=== PATIENT | male | born 1955 | race Caucasian/White ===

== ENCOUNTER 2024-11-29 09:43 | Day surgery (SDC) | payer MEDICARE, OTHER ==
[~2024-11-29] VITALS: Ht 182.9 cm; Wt 113.6 kg
[~2024-11-29 09:43] MED LIST: IBLOOD GLUCOSE TEST STRIP 1 EA TEST VI PRN; LACTATED RINGER'S 1,000 ML IV SCH; LIDOCAINE HCL 1% 5 ML SDV INJ ONE; MIDAZOLAM HCL 5 MG/5 ML VIAL IV PRN; fentaNYL citrate 100 MCG/2 ML VIAL IV PRN
[2024-11-29 10:08] VITALS: BP 163/79
[2024-11-29] MEDS ORDERED: MIDAZOLAM HCL 5 MG/5 ML VIAL ONE (10:24)
[2024-11-29] MEDS ORDERED: fentaNYL citrate 100 MCG/2 ML VIAL ONE (10:25)
--- NOTE | 2024-11-29 11:33 | NUR ---
11/29/24 1133 Alycia Serrano 1130-PATIENT ARRIVED TO PACU ON 1L NC RR EVEN. PATIENT AWAKE LAYING LEFT LATERAL PLACED ONR A 93% RR EVEN. ORIENTED TO PACU DENIES PAIN OR NAUSEA. ABDOMEN SOFT. IVF INFUSING. ENCOURAGED TO PASS GAS.
[2024-11-29 12:10] VITALS: BP 147/84
--- NOTE | 2024-12-04 11:00 | OR ---
[facility] [address] [place], [place] [address] Signed DATE OF OPERATION: 11/29/2024 SURGEON: Akira Gomez MD PREOPERATIVE DIAGNOSES: 1. Colon screening. 2. History of hepatitis C (treated and cured). POSTOPERATIVE DIAGNOSES: 1. Sigmoid diverticulosis. 2. Multiple polyps (11). PROCEDURE: Total colonoscopy to cecum with cold snare polypectomy x7 and cold morcellation polypectomy x4. ANESTHESIA: Intravenous sedation; fentanyl 100 mcg and Versed 7 mg. INDICATION: This 69-year-old white man is a patient of BURTON Anderson. He is referred for screening colonoscopy having never undergone colon evaluation in the past. He does have a history of hepatitis C which was treated medically and is said to be cured. He has no current symptoms of bleeding, diarrhea, or constipation and no family history of colon cancer. He understands the risk of colonoscopy including but not limited to bleeding, infection, and perforation and wished to proceed. FINDINGS: The prep was good. Complete colonoscopy was undertaken to the cecum. Mucosal elevation behind the ileocecal valve was required as the complete and full intubation of the cecum was not forthcoming. There were a number of polyps within the colon including the proximal ascending colon, , the transverse colon, the sigmoid x2, the rectosigmoid x2 and additional rectosigmoid x3 as well as a rectal polyp and three additional rectal polyps. In total, 11 were excised. DESCRIPTION OF PROCEDURE: The patient was brought to the endoscopy suite and placed in the lateral decubitus position, given intravenous sedation to the point of slurred speech and nystagmus. Digital rectal examination was normal. Electronically Signed By: AKIRA GOMEZ MD 12/04/[address] [facility] PATIENT NAME: NISSA DOLAN OPERATIVE REPORT DATE OF : 57 REPORT #: [id number] PHYSICIAN: AKIRA GOMEZ MD PCP: AMRIK JOHNSON REPORT IS CONFIDENTIAL AND NOT TO BE RELEASED WITHOUT AUTHORIZATION [facility] [address] [place], [place] [address] Signed An Olympus video colonoscope was passed in the rectum and manipulated throughout the colon noting diverticulosis of the sigmoid and left colon. The scope was ultimately passed to the right colon and nearly into the cecum. Various maneuvers could not fully intubate the cecum, but with elevation of the mucosa using a biopsy forcep device, the mucosa of the cecum was fully found to be normal. Irrigation was undertaken. The scope was withdrawn, immediately noted was a proximal ascending colonic polyp which was excised with cold snare technique. The scope was withdrawn and a transverse colonic polyp was similarly identified and similarly excised. Further withdrawal showed no abnormality into the sigmoid. There were two polyps there, both excised with cold snare technique. Both were pedunculated. One was additionally secured with a hemoclip. Further withdrawal showed two rectosigmoid polyps, both excised with snare technique. Further withdrawal showed another rectosigmoid polyp excised with cold morcellation technique. Further withdrawal showed three additional small rectal polyps, all excised with cold morcellation technique. Retroflexed view was otherwise normal. Scope was removed and the patient was taken to the recovery room in good condition. CONCLUDING DIAGNOSES: Polyps x11 and diverticulosis. PLAN: We will recommend repeat colonoscopy in 2 to 3 years given the number of polyps. Colonoscopy certainly can and should be done sooner if there are adverse symptoms. He should maintain a high-fiber diet based on his diverticulosis. He will return to the ongoing care of BURTON Anderson. MD BREEZY Bridges/LLUVIAL /[id number] Copies: ~ Electronically Signed By: AKIRA GOMEZ MD 12/04/24 1100 PATIENT NAME: NISSA DOLAN OPERATIVE REPORT DATE OF : 57 REPORT #: [id number] PHYSICIAN: AKIRA GOMEZ MD PCP: AMRIK JOHNSON REPORT IS CONFIDENTIAL AND NOT TO BE RELEASED WITHOUT AUTHORIZATION
--- NOTE | 2024-12-04 16:43 | PATH ---
[facility] [address] [address] Signed SPECIMEN(S): A TRANSVERSE/DESCENDING COLON POLYP SPECIMEN(S): B ASCENDING COLON POLYP SPECIMEN(S): C SIGMOID POLYP SPECIMEN(S): D SIGMOID POLYP SPECIMEN(S): E RECTOSIGMOID POLYP SPECIMEN(S): F RECTOSIGMOID POLYP SPECIMEN(S): G RECTOSIGMOID POLYP SPECIMEN(S): H RECTAL POLYP SPECIMEN(S): I RECTAL POLYP SPECIMEN SOURCE: A. TRANSVERSE/DESCENDING COLON POLYP B. ASCENDING COLON POLYP C. SIGMOID POLYP D. SIGMOID POLYP E. RECTOSIGMOID POLYP F. RECTOSIGMOID POLYP G. RECTOSIGMOID POLYP H. RECTAL POLYP I. RECTAL POLYP CLINICAL HISTORY: Colon cancer screening, diverticulosis, multiple polyps FINAL PATHOLOGIC DIAGNOSIS: A. Transverse/descending colon polyp: - Tubular adenoma (two fragments). B. Ascending colon polyp: - Tubular adenoma (five fragments). C. Sigmoid polyp: - Hyperplastic polyp (one fragment). D. Sigmoid polyp: - Hyperplastic polyp (one fragment). E. Rectosigmoid polyp: - Hyperplastic polyp (one fragment). F. Rectosigmoid polyp: - Hyperplastic polyp (one fragment). G. Rectosigmoid polyp: - Hyperplastic polyp (one fragment). H. Rectal polyp: - Hyperplastic polyp (two fragments). PATIENT NAME: NISSA DOLAN PATHOLOGY DATE OF : 57 REPORT #: [id number] PHYSICIAN: [facility] PCP: AMRIK JOHNSON REPORT IS CONFIDENTIAL AND NOT TO BE RELEASED WITHOUT AUTHORIZATION [facility] [address] [place], [place] [address] Signed I. Rectal polyp: - Hyperplastic polyp (three fragments). JVR MICROSCOPIC EXAMINATION: Histologic sections of all submitted blocks are examined by light microscopy. These findings, together with the gross examination, support the pathologic diagnosis. GROSS DESCRIPTION: A. The specimen, labeled and designated "McNeeley, transverse/descending colon polyp," is received in formalin and consists of five sosa soft tissue fragments, ranging from 0.1-0.6 cm. Entirely submitted in (A1). B. The specimen, labeled and designated "McNeeley, ascending colon polyp," is received in formalin and consists of five sosa soft tissue fragments, ranging from 0.1-0.3 cm. Entirely submitted in (B1). C. The specimen, labeled and designated "McNeeley, sigmoid polyp," is received in formalin and consists of one sosa soft tissue fragment, 0.5 cm. Entirely submitted in (C1). D. The specimen, labeled and designated "McNeeley, sigmoid polyp," is received in formalin and consists of a sosa polypoid piece of tissue (0.6 x 0.5 x 0.5 cm). The possible resection margin is inked blue, and the tissue is bisected to reveal sosa to red-brown soft cut surfaces. The specimen is submitted entirely in cassette (D1). E. The specimen, labeled and designated "McNeeley, rectosigmoid polyp," is received in formalin and consists of one sosa soft tissue fragment, 0.5 cm. Entirely submitted in (E1). F. The specimen, labeled and designated "McNeeley, rectosigmoid polyp," is received in formalin and consists of a ssoa polypoid piece of tissue (0.6 x 0.5 x 0.5 cm). The resection margin is inked blue, and the tissue is bisected to reveal pink-sosa soft cut surfaces. The specimen is submitted entirely in cassette (F1). G. The specimen, labeled and designated "McNeeley, rectosigmoid polyp," is received in formalin and consists of one sosa soft tissue fragment, 0.3 cm. Entirely submitted in (G1). H. The specimen, labeled and designated "McNeeley, rectal polyp," is received in formalin and consists of two sosa soft tissue fragments, ranging from 0.2-0.3 cm. Entirely submitted in (H1). I. The specimen, labeled and designated "McNeeley, rectal polyp," is received PATIENT NAME: NISSA DOLAN PATHOLOGY DATE OF : 57 REPORT #: [id number] PHYSICIAN: MARKUS TALLEY PCP: AMRIK JOHNSON REPORT IS CONFIDENTIAL AND NOT TO BE RELEASED WITHOUT AUTHORIZATION [address] [address] Signed in formalin and consists of three sosa soft tissue fragments, ranging from 0.2-0.3 cm. Entirely submitted in (I1). VB (under the direct supervision of a pathologist) The Gross Description was prepared using a voice recognition system. The report was reviewed for accuracy; however, sound-alike word errors, addition and/or deletions may occur. If there is any question about this report, please contact Client Services. ADDITIONAL NOTES: Immunohistochemical and/or in situ hybridization studies if performed in this case included appropriate positive controls that reacted as expected. This test was developed and its performance characteristics determined by [facility]. It has not been cleared or approved by the U.S. Food and Drug Administration. The FDA has determined that such clearance or approval is not necessary. This test is used for clinical purposes. It should not be regarded as investigational or for research. [facility] is certified under the Clinical Laboratory Improvement Amendments of 1988 (CLIA) as qualified to perform high complexity clinical laboratory testing. PERFORMING LABORATORY: Technical component was performed by [facility], [address] [place] [id number] (CLIA# [id number]). Professional interpretation was performed by [facility] [place] [facility] [place] [id number] (CLIA#: [id number]). Diagnostician: Shivam Elliott MD Pathologist Electronically Signed 12/04/2024 Copies: ~ PATIENT NAME: NISSA DOLAN PATHOLOGY DATE OF : 57 REPORT #: [id number] PHYSICIAN: [facility] PCP: AMRIK JOHNSON REPORT IS CONFIDENTIAL AND NOT TO BE RELEASED WITHOUT AUTHORIZATION
== END 2024-11-29 12:15 | disposition home or self-care (01) ==
LOC: DS 09:43
PROVIDERS: ATTEND Surgery
PROC: 0DBL8ZZ Excision of Transverse Colon, Via Natural or Artificial Opening Endoscopic (ICD-10-PCS; 2024-11-29)
PROC: 0DBN8ZZ Excision of Sigmoid Colon, Via Natural or Artificial Opening Endoscopic (ICD-10-PCS; 2024-11-29)
PROC: 0DBP8ZZ Excision of Rectum, Via Natural or Artificial Opening Endoscopic (ICD-10-PCS; 2024-11-29)
PROC: 0DBF8ZZ Excision of Right Large Intestine, Via Natural or Artificial Opening Endoscopic (ICD-10-PCS; principal; 2024-11-29 11:00)
DX: Z12.11 Encounter for screening for malignant neoplasm of colon (principal); D12.2 Benign neoplasm of ascending colon; D12.3 Benign neoplasm of transverse colon; K63.5 Polyp of colon; K62.1 Rectal polyp; K57.30 Diverticulosis of large intestine without perforation or abscess without bleeding; E66.01 Morbid (severe) obesity due to excess calories; Z68.33 Body mass index [BMI] 33.0-33.9, adult
CPT/HCPCS: 99153; G0500; J2250; J3010

== ENCOUNTER 2024-12-11 05:47 | Day surgery (SDC) | payer MEDICARE, OTHER ==
[2024-12-05 08:54] VITALS: BP 170/86
[~2024-12-11] VITALS: Ht 182.9 cm; Wt 113.6 kg
[~2024-12-11 05:47] MED LIST changes: -IBLOOD GLUCOSE TEST STRIP 1 EA TEST VI PRN; -LIDOCAINE HCL 1% 5 ML SDV INJ ONE; -MIDAZOLAM HCL 5 MG/5 ML VIAL IV PRN; -fentaNYL citrate 100 MCG/2 ML VIAL IV PRN
[2024-12-11 06:04] VITALS: BP 152/81
[2024-12-11] MEDS ORDERED: IBLOOD GLUCOSE TEST STRIP 1 EA TEST VI PRN (07:00)
[2024-12-11] MEDS ORDERED: HEParin SOD (PORCINE) 5,000 UNIT/ML SDV SUB-Q SCH (07:00)
[2024-12-11] MEDS ORDERED: CEFAZOLIN SODIUM 2 GM/20 ML SYR IV SCH (07:00)
[2024-12-11] MEDS ORDERED: LIDOCAINE HCL 1% 5 ML SDV INJ ONE (07:00)
[2024-12-11] MEDS ORDERED: DEXAMETHASONE SOD PHOS 4 MG/ML VIAL ONE (07:06)
[2024-12-11] MEDS ORDERED: GLYCOPYRROLATE 1 MG/5 ML MDV ONE (07:06)
[2024-12-11] MEDS ORDERED: fentaNYL citrate 100 MCG/2 ML VIAL ONE ×2 (07:06→08:05)
[2024-12-11] MEDS ORDERED: LIDOCAINE HCL 2% 5 ML SDV ONE (07:06)
[2024-12-11] MEDS ORDERED: propofoL 200 MG/20 ML VIAL ONE (07:06)
--- NOTE | 2024-12-11 07:32 | NUR ---
VISITED DURING SPIRITUAL CARE ROUNDS. PT SUPPORTED BY SPOUSE IN ROOM. BOTH IN OVERALL GOOD SPIRITS. NO IMMEDIATE NEEDS. DIRECTOR OF EDUCATION AND TRAINING PROVIDED SUPPORTIVE PRESENCE, EXPLORED MARITZA PRACTICES, PROVIDED HOSPITALITY, PRAYER. PT AND SPOUSE EXPRESSED GRATITUDE, MARITZA SOURCE OF STRENGTH.
[2024-12-11] MEDS ORDERED: ePHEDrine sulfate 50 MG/ML AMP ONE (08:11)
--- NOTE | 2024-12-11 08:35 | NUR ---
12/11/24 0835 Alycia Serrano 0828-PATIENT ARRIVED TO PACU ON 6L MASK RR EVEN DROWSY AWAKE. ORIENTED TO PACU DENIES PAIN OR NAUSEA DRESSING INTACT TO RIGHT SHOULDER. SR HR 80'S IVF INFUSING. 0833-PATIENT AWAKE HOB ELEVATED PLACED ON RA 95% RR EVEN. DENIES PAIN OR NAUSEA.
[2024-12-11] MEDS ORDERED: MOTRIN IB200 MG PO (08:39)
[2024-12-11] MEDS ORDERED: TYLENOL EXTRA500 MG PO (08:39)
[2024-12-11] MEDS ORDERED: OXYCODONE HCL5 MG PO (08:40)
[2024-12-11] MEDS ORDERED: ACETAMINOPHEN 500 MG TAB PO PRN (08:45)
[2024-12-11] MEDS ORDERED: IBUPROFEN 600 MG TAB PO PRN (08:45)
[2024-12-11] MEDS ORDERED: LACTATED RINGER'S 1,000 ML IV SCH (08:45)
[2024-12-11] MEDS ORDERED: NALOXONE HCL 0.4 MG SYR IV PRN ×2 (08:45→09:00)
[2024-12-11] MEDS ORDERED: OXYCODONE/APAP 7.5/325 TAB PO PRN (08:45)
[2024-12-11] MEDS ORDERED: fentaNYL citrate 50 MCG/ML SDV IV PRN (09:00)
[2024-12-11 09:03] VITALS: BP 131/76
--- NOTE | 2024-12-11 09:05 | NUR ---
PT ARRIVES TO DS FROM PACU VIA STRETCHER. PT REPORTS 0/10 AND NO NAUSEA AT THIS TIME. PT HOB ELEVATED AT PT REQUEST TO 45 DEGREES FOR CONSUMPTION OF SOME PUDDING/CRACKERS AND SIPS OF ICE WATER. PT ON RA, RESPIRATIONS EVEN AND UNLABORED, NO SIGNS OF DISTRESS. REPORT RECEIVED FROM REYNA RAMIREZ, PT AT BEDSIDE. CALL LIGHT WITHIN REACH, PT STATES NO FURTHER NEEDS OR QUESTIONS AT THIS TIME.
--- NOTE | 2024-12-11 09:42 | NUR ---
IN PT ROOM FOR PAIN ASSESSMENT. PT CONTINUES TO REPORT PAIN 0/10. PT CONSUMED 100% OF SNACK, NO REPORTED NAUSEA. PRESCRIPTION PROVIDED TO FOR DELIVERY TO PHARMACY BEFORE PT DC'S. PT STATES NO FURTHER NEEDS OR QUESTIONS AT THIS TIME. CALL LIGHT WITHIN REACH.
[2024-12-11 10:19] VITALS: BP 146/85
--- NOTE | 2024-12-11 10:20 | NUR ---
IN PT ROOM D/T 'S RETURN. PT ASSISTING PT WITH GETTING DRESSED IN SEATED POSITION. CALL LIGHT WITHIN REACH. VS TAKEN.
--- NOTE | 2024-12-11 10:25 | NUR ---
PT STANDS AT BEDSIDE AND REPORTS NO DIFFICULTY STANDING OR UNSTEADY GAIT. THIS RN STANDBY ASSIST TO RESTROOM. PT CONTINUES TO REPORT NO DIZZINESS OR NAUSEA. PT URINE VOIDS 100 ML OF CLEAR/YELLOW URINE. PT BACK TO ROOM AND DC EDUCATION PROVIDED. PT STATES VERBAL UNDERSTANDING OF DC EDUCATION AND NO FURTHER QUESTIONS AT THIS TIME. PT OFF OF UNIT VIA WC TO PASSENGER SIDE OF 'S VEHICLE. PT REPORTS NO FURTHER NEEDS. ALL BELONGINGS IN PT POSSESSION AT THIS TIME.
[2024-12-11] MEDS ORDERED: SEVOFLURANE 250 ML BTL INH ONE (11:13)
--- NOTE | 2024-12-12 09:59 | OR ---
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 POSTOPERATIVE DIAGNOSIS: Right supraclavicular shoulder 5.5 cm lipoma, subfascial. PROCEDURE: Excision of right supraclavicular 5.5 cm soft tissue mass, subfascial. ANESTHESIA: General LMA. Goran Flannery CRNA and local 10 mL of 0.25% Marcaine with epinephrine. INDICATION: This 69-year-old white man is a patient of Amrik Maharaj and underwent colonoscopy by me. He was also noted to have a soft tissue mass in the right shoulder area above the clavicle and medial to the deltoid proper. It is clinically consistent with a lipoma, smooth walled and reasonably mobile. It has caused him increase in discomfort, particularly with his gun sling during hunting season. He wishes excision. He understands the risk of bleeding, infection, recurrence, cosmetic deformity, and other issues related to its excision and wished to proceed. FINDINGS: Indeed the lesion was consistent with a lipoma. It was beneath the lowest fascial layer adjacent to the muscle itself but not invasive of the muscle and with little if any suspicion for sarcoma. Complete excision was undertaken. DESCRIPTION OF PROCEDURE: The patient was brought to the operating room, given a general LMA type anesthetic and preoperative antibiotic Ancef was given. The upper shoulder and supraclavicular area was prepared with chlorhexidine solution and draped sterilely. The line of skin tension was generally vertically oriented in this area and following that line of skin tension incision made with a 15 blade. Dissection was carried through the subcutaneous tissue sharply revealing the outer aspect of the lipomatous mass. dissected free from surrounding tissue, extended down to the fascia of the supraclavicular space. This was excised primarily with electrocautery. The lesion was measured and found to be 5.5 cm and passed for pathology. Irrigation was undertaken in the area. Hemostasis assured Electronically Signed By: AKIRA GOMEZ MD 12/12/24 0959 PATIENT NAME: NISSA DOLAN OPERATIVE REPORT DATE OF : 57 REPORT #: [id number] PHYSICIAN: AKIRA GOMEZ MD PCP: AMRIK MAHARAJ REPORT IS CONFIDENTIAL AND NOT TO BE RELEASED WITHOUT AUTHORIZATION [facility] [address] [place], [place] [address] Signed with electrocautery. A 10 mL of 0.25% Marcaine with epinephrine was injected locally. The wound was then closed in the deepest dermal layer with interrupted 2-0 Vicryl suture. Closure of the skin additionally was deemed mental some and Steri-Strips were applied and an Acticoat dressing applied as well. Blood loss was less than 5 mL. Sponge, needle and instrument counts reported as correct x3. MD BREEZY Bridges/BLU /[id number] cc: BURTON Anderson Copies: AMRIK MAHARAJ ~ Electronically Signed By: AKIRA GOMEZ MD 12/12/24 0959 PATIENT NAME: NISSA DOLAN OPERATIVE REPORT DATE OF : 57 REPORT #: [id number] PHYSICIAN: AKIRA GOMEZ MD PCP: AMRIK MAHARAJ REPORT IS CONFIDENTIAL AND NOT TO BE RELEASED WITHOUT AUTHORIZATION
--- NOTE | 2024-12-13 14:10 | PATH ---
[facility] [address] [place], [place] [address] Signed SPECIMEN(S): A RIGHT SHOULDER SPECIMEN SOURCE: A. RIGHT SHOULDER CLINICAL HISTORY: Right shoulder lipoma FINAL PATHOLOGIC DIAGNOSIS: Right shoulder, soft tissue mass, excision: - Lipoma. DWS:bobbiv MICROSCOPIC EXAMINATION: Histologic sections of all submitted blocks are examined by light microscopy. These findings, together with the gross examination, support the pathologic diagnosis. GROSS DESCRIPTION: The specimen, labeled and designated "Joselin Jones, right shoulder soft tissue mass," is received in formalin and consists of a 5.4 x 3.8 x 2.6 cm yellow soft tissue with a thin translucent membrane capsule. The external surface is inked blue. Sectioning reveals a homogenous, soft and yellow cut surface without firm areas. No hemorrhage or necrosis is seen. Signal Tester sections are submitted in (A1). AA (under the direct supervision of a pathologist) The Gross Description was prepared using a voice recognition system. The report was reviewed for accuracy; however, sound-alike word errors, addition and/or deletions may occur. If there is any question about this report, please contact Client Services. PERFORMING LABORATORY: Technical component was performed by [facility], [address] [place] [id number] (CLIA# [id number]). Professional interpretation was performed by [facility], [address] [place] [phone] (CLIA#: [id number]). Diagnostician: Gerry Goodwin MD Pathologist Electronically Signed 12/13/2024 PATIENT NAME: NISSA JONES PATHOLOGY DATE OF : 57 REPORT #: [id number] PHYSICIAN: [facility] PCP: AMRIK JOHNSON REPORT IS CONFIDENTIAL AND NOT TO BE RELEASED WITHOUT AUTHORIZATION [address] [address] Signed Copies: ~ PATIENT NAME: NISSA JONES PATHOLOGY DATE OF : 57 REPORT #: [id number] PHYSICIAN: [facility] PCP: AMRIK JOHNSON REPORT IS CONFIDENTIAL AND NOT TO BE RELEASED WITHOUT AUTHORIZATION
== END 2024-12-11 10:35 | disposition home or self-care (01) ==
LOC: DS 05:47
PROVIDERS: ATTEND Surgery
PROC: 0JBD0ZZ Excision of Right Upper Arm Subcutaneous Tissue and Fascia, Open Approach (ICD-10-PCS; principal; 2024-12-11 07:30)
DX: D17.21 Benign lipomatous neoplasm of skin and subcutaneous tissue of right arm (principal); I10 Essential (primary) hypertension; E66.9 Obesity, unspecified; Z68.33 Body mass index [BMI] 33.0-33.9, adult; Z86.19 Personal history of other infectious and parasitic diseases; Z87.891 Personal history of nicotine dependence
CPT/HCPCS: 00400; J0690; J1100; J1644; J2003; J2704; J3010; J7121